=== PATIENT | female | born 1990 | race Caucasian/White ===

== ENCOUNTER 2016-08-24 12:23 | Emergency (ER) | payer OTHER ==
[2016-08-24 12:36] VITALS: BP 124/64; PULSE 85; RESP 20; TEMP 99.2; O2SAT 99
[2016-08-24] MEDS ORDERED: Sodium Chloride 0.9% 1,000 ML IV STA (12:52)
--- NOTE | 2016-08-24 12:54 | ED PDOC ---
Arrival/HPI - General Chief Complaint: Abdominal Pain Time Seen by Provider: 08/24/16 12:26 Historian: Patient - History of Present Illness Narrative History of Present Illness (Text): 08/24/16 12:51 25 year old female presents to the emergency department with suprapubic pain for the past 9 days. LMP 4/. No vomiting, fever, or other complaints. Patient states she took Motrin this morning. Time/Duration: > week Symptom Onset: Gradual Symptom Course: Unchanged Associated Symptoms (Text): None Past Medical History - Provider Review Nursing Documentation Reviewed: Yes - Infectious Disease Hx of Infectious Diseases: None - Gastrointestinal Other/Comment: H-pylori, 2016 - Psychiatric Hx Substance Use: No - Anesthesia Hx Anesthesia: No Hx Anesthesia Reactions: No Hx Malignant Hyperthermia: No Family/Social History - Physician Review Nursing Documentation Reviewed: Yes Family/Social History: Unknown Family HX Smoking Status: Never Smoked Hx Alcohol Use: No Hx Substance Use: No Allergies/Home Meds Allergies/Adverse Reactions: Allergies kiwi Adverse Reaction (Verified 08/24/16 12:37) RASH strawberry Adverse Reaction (Verified 08/24/16 12:37) RASH apples Adverse Reaction (Uncoded 08/24/16 12:37) RASH Home Medications: Home Meds Medication Instructions Recorded Confirmed No Known Home Med 08/24/16 08/24/16 Review of Systems - Physician Review All systems were reviewed & negative as marked: Yes - Review of Systems Constitutional: absent: Fevers Respiratory: absent: SOB Gastrointestinal: Abdominal Pain. absent: Nausea, Vomiting Physical Exam Vital Signs Reviewed: Yes Vital Signs Temp Pulse Resp BP Pulse Ox 08/24/16 12:31 99.2 F 85 20 124/64 99 Temperature: Afebrile Blood Pressure: Normal Pulse: Regular Respiratory Rate: Normal Appearance: Positive for: Well-Appearing, Non-Toxic, Uncomfortable Pain Distress: Mild Mental Status: Positive for: Alert and Oriented X 3 - Systems Exam Head: Present: Atraumatic, Normocephalic Pupils: Present: PERRL Extroacular Muscles: Present: EOMI Conjunctiva: Present: Normal Mouth: Present: Moist Mucous Membranes Neck: Present: Normal Range of Motion Respiratory/Chest: Present: Clear to Auscultation, Good Air Exchange. No: Respiratory Distress, Accessory Muscle Use Cardiovascular: Present: Regular Rate and Rhythm, Normal S1, S2. No: Murmurs Abdomen: Present: Tenderness (Mild suprapubic), Normal Bowel Sounds. No: Distention, Peritoneal Signs Back: Present: Normal Inspection Upper Extremity: Present: Normal Inspection. No: Cyanosis, Edema Lower Extremity: Present: Normal Inspection. No: Edema Neurological: Present: GCS=15, CN II-XII Intact, Speech Normal Skin: Present: Warm, Dry, Normal Color. No: Rashes Psychiatric: Present: Alert, Oriented x 3, Normal Insight, Normal Concentration Medical Decision Making ED Course and Treatment: Impression: 25 year old female presents to the emergency department with suprapubic pain for the past 9 days. Differential Diagnosis include but are not limited to: ectopic vs early pregn vs miscarriage. Plan: -- US -- Labs -- Reassess and disposition Progress Notes: 08/24/16 12:55 Patient states she does not want pain meds in er intially. later requests tylenol to RN. US Transvaginal Lead Housekeeper : Pascual Barnett MD IMPRESSION: 3 millimeter hypoechoic/ cystic focus in the central endometrial canal which could represent a very early intrauterine gestation. No evidence of pole or yolk sac. Ectopic is not excluded. Recommend correlation with serial beta HCG levels and short-term interval followup. Case discussed with Dr. Torres, who advises close outpatient followup. Instructed return precautions. Patient verbalizes understanding 08/24/16 15:10 on reassesement. abd soft mild ttp. no vb. pt instructed about return precatuions for ectopic. advised of possiblility. advised needs outpt f/u. no free fluid - Lab Interpretations Lab Results: 08/24/16 12:56 08/24/16 14:10 Lab Results 08/24/16 14:10: Blood Type A POSITIVE, Antibody Screen Negative, BBK History Checked Patient has bt 08/24/16 14:10: Sodium 137, Potassium 3.9, Chloride 105, Carbon Dioxide 21, Anion Gap 15, BUN 8, Creatinine 0.5, Est GFR ( Amer) > 60, Est GFR (Non- Af Amer) > 60, Random Glucose 104, Calcium 8.6, Total Bilirubin 0.6, AST 26, ALT 34, Alkaline Phosphatase 44, Total Protein 7.3, Albumin 3.9, Globulin 3.4, Albumin/Globulin Ratio 1.1, Lipase 105 08/24/16 13:09: Blood Type Cancelled, Antibody Screen Cancelled, BBK History Checked Cancelled 08/24/16 12:56: Beta HCG, Quant 699.67 H 08/24/16 12:56: Urine Color Yellow, Urine Appearance Sl cloudy, Urine pH 6.0, Ur Specific [place] >= 1.030, Urine Protein Trace H, Urine Glucose (UA) Negative , Urine Ketones Negative, Urine Blood Negative, Urine Nitrate Negative, Urine Bilirubin Negative, Urine Urobilinogen 0.2, Ur Leukocyte Esterase Negative, Urine RBC Negative, Urine WBC 0 - 2, Ur Epithelial Cells 1 - 3, Urine Bacteria Mod, Urine HCG, Qual Positive 08/24/16 12:56: PT 10.8, INR 1.00, APTT 28.5 08/24/16 12:56: WBC 9.8, RBC 4.58, Hgb 11.9 L, Hct 36.2, MCV 79.0 L, MCH 26.0, MCHC 32.9, RDW 13.8, Plt Count 177, MPV 12.9 H, Gran % 79.8 H, Lymph % (Auto) 11.5 L, [place] % (Auto) 8.0 H, Eos % (Auto) 0.6 L, Baso % (Auto) 0.1, Gran # 7.79 H, Lymph # 1.1 L, [place] # 0.8 H, Eos # 0.1, Baso # 0.01 - RAD Interpretation Radiology Orders: 08/24/16 12:51 OB TRANSVAGINAL [US] Stat - Medication Orders Current Medication Orders: Discontinued Medications Acetaminophen (Tylenol 325mg Tab) 975 mg PO STAT STA Stop: 08/24/16 13:09 Last Admin: 08/24/16 13:10 Dose: 975 mg Acetaminophen (Tylenol 325mg Tab) Confirm Administered Dose 975 mg .ROUTE .STK- MED ONE Stop: 08/24/16 13:11 Last Admin: 08/24/16 13:11 Dose: Sodium Chloride (Sodium Chloride 0.9%) 1,000 mls @ 999 mls/hr IV .Q1H1M STA Stop: 08/24/16 13:52 Last Admin: 08/24/16 13:07 Dose: 999 mls/hr - Scribe Statement The provider has reviewed the documentation as recorded by the Karthik Dhaliwal Provider Scribe Attestation: All medical record entries made by the Karthik were at my direction and personally dictated by me. I have reviewed the chart and agree that the record accurately reflects my personal performance of the history, physical exam, medical decision making, and the department course for this patient. I have also personally directed, reviewed, and agree with the discharge instructions and disposition. Disposition/Present on Arrival - Present on Arrival Any Indicators Present on Arrival: No History of DVT/PE: No History of Uncontrolled Diabetes: No Urinary Catheter: No History of Decub. Ulcer: No History Surgical Site Infection Following: None - Disposition Have Diagnosis and Disposition been Completed?: Yes Diagnosis: Threatened Disposition Time: 14:50 Patient Problems: Current Active Problems Problem Status Onset Threatened Acute Condition: STABLE Discharge Instructions (ExitCare): Threatened Miscarriage (ED) Additional Instructions: please follow up with your doctor. return to er with worsening symptoms or concerns. you need to see in obgyn and have repeat labs and US performed in the next 48 hours. Referrals: Kaleb Mccord [Medical Doctor] - Follow up with primary Alexis Torres MD [Staff Provider] - Follow up with primary
[2016-08-24 13:13] LABS: ADD MANUAL DIFF? NO
[2016-08-24 13:17] LABS: URINE BILIRUBIN NEGATIVE (NEGATIVE); URINE BLOOD NEGATIVE (NEGATIVE); URINE GLUCOSE (UA) NEGATIVE (NEGATIVE); URINE KETONE NEGATIVE (NEGATIVE); URINE LEUKOCYTE ESTERASE NEGATIVE Leu/uL (NEGATIVE); URINE PROTEIN TRACE mg/dL (<30 mg/dL); URINE UROBILINOGEN 0.2 E.U./dL (<1 E.U./dL)
[2016-08-24 13:18] LABS: BASO # 0.01 K/mm3 (0.0-2.0); BASO % 0.1 % (0.0-3.0); EOS # 0.1 (0.0-0.7); EOS % 0.6 % (1.5-5.0); GRAN # 7.79 (1.4-6.5); GRAN % 79.8 % (50.0-68.0); HEMATOCRIT 36.2 % (36.0-48.0); LYMPH # 1.1 (1.2-3.4); LYMPH % 11.5 % (22.0-35.0); MEAN CORPUSCULAR HGB CONC 32.9 g/dl (31.0-37.0); MEAN PLATELET VOLUME 12.9 fl (7.0-11.0); MONO # 0.8 (0.1-0.6); PLATELET COUNT 177 10^3/uL (120.0-450.0); RED CELL DISTRIBUTION WIDTH 13.8 % (11.5-14.5); WHITE BLOOD COUNT 9.8 10^3/ul (4.5-11.0)
[2016-08-24 13:21] LABS: URINE APPEARANCE SL CLOUDY (CLEAR); URINE COLOR YELLOW (YELLOW)
[2016-08-24 13:25] LABS: PARTIAL THROMBOPLASTIN TIME 28.5 Seconds (23.7-30.8)
[2016-08-24 13:29] LABS: URINE RBC NEGATIVE /hpf (0-2); URINE WBC 0 - 2 /hpf (0-6)
[2016-08-24 13:30] LABS: URINE BACTERIA MOD (NEG)
--- NOTE | 2016-08-24 14:16 | US ---
PROCEDURE: HISTORY: abd pain and COMPARISON: TECHNIQUE: FINDINGS: The uterus is normal in size. The endometrium is thickened measuring 2 centimeters. There is a 3 millimeter hypoechoic focus within the endometrial canal which could represent a very early intrauterine gestation. There is no evidence of yolk sac or pole. The ovaries are unremarkable. IMPRESSION: 3 millimeter hypoechoic/ cystic focus in the central endometrial canal which could represent a very early intrauterine gestation. No evidence of pole or yolk sac. Ectopic is not excluded. Recommend correlation with serial beta HCG levels and short-term interval followup.
[2016-08-24 14:23] LABS: ALB/GLOB RATIO 1.1 (1.1-1.8); ALKALINE PHOSPHATASE 44 U/L (38-133); ALT/SGPT 34 U/L (7-56); AST/SGOT 26 U/L (15-39); BILIRUBIN,TOTAL 0.6 mg/dL (0.2-1.3); BLOOD UREA NITROGEN 8 mg/dL (7-21); CALCIUM 8.6 mg/dL (8.4-10.5); CARBON DIOXIDE 21 mmol/L (21-33); CHLORIDE 105 mmol/L (98-107); GFR AFRICAN-AMERICAN > 60; GLUCOSE,RANDOM 104 mg/dL (70-110); LIPASE 105 U/L (23-300); POTASSIUM 3.9 mmol/L (3.6-5.0); SODIUM 137 mmol/L (132-148); TOTAL PROTEIN 7.3 g/dL (5.8-8.3)
== END 2016-08-24 15:09 | disposition home or self-care (01) ==
LOC: MERGE 12:23 → ED 12:23
DX: O20.0 Threatened abortion (principal); Z3A.00 Weeks of gestation of pregnancy not specified
CPT/HCPCS: 76817; 80053; 81001; 83690; 84702; 84703; 85025; 85610; 85730; 86850; 86900; 99284; J7040

== ENCOUNTER 2016-10-24 18:51 | Emergency (ER) | payer OTHER ==
[2016-10-24 18:54] VITALS: BMI 25.3
[2016-10-24 18:58] VITALS: RESP 18; TEMP 98.2; O2SAT 99
[2016-10-24] MEDS ORDERED: Sodium Chloride 0.9% 1,000 ML IV STA (19:08)
[2016-10-24 20:06] LABS: BASO # 0.01 K/mm3 (0.0-2.0); BASO % 0.2 % (0.0-3.0); EOS # 0.1 (0.0-0.7); GRAN # 1.84 (1.4-6.5); GRAN % 45.4 % (50.0-68.0); HEMOGLOBIN 10.8 gm/dL (12.0-16.0); LYMPH # 1.9 (1.2-3.4); LYMPH % 45.7 % (22.0-35.0); MEAN CORPUSCULAR HEMOGLOBIN 25.1 pg (25.0-35.0); MEAN CORPUSCULAR HGB CONC 32.5 g/dl (31.0-37.0); MONO # 0.3 (0.1-0.6); MONO % 6.7 % (1.0-6.0); RBC 4.31 10^6/uL (3.5-6.1); RED CELL DISTRIBUTION WIDTH 14.2 % (11.5-14.5); WHITE BLOOD COUNT 4.1 10^3/ul (4.5-11.0)
[2016-10-24 20:13] LABS: INR 1.01 (0.93-1.08); PARTIAL THROMBOPLASTIN TIME 28.1 Seconds (23.7-30.8); PROTHROMBIN TIME 10.9 Seconds (9.9-11.8)
[2016-10-24 20:15] LABS: ALB/GLOB RATIO 1.3 (1.1-1.8); ALBUMIN 3.9 g/dL (3.0-4.8); ALT/SGPT 41 U/L (7-56); AST/SGOT 33 U/L (15-39); BLOOD UREA NITROGEN 3 mg/dL (7-21); CALCIUM 9.1 mg/dL (8.4-10.5); GFR AFRICAN-AMERICAN > 60; GFR NON-AFRICAN AMERICAN > 60; LIPASE 59 U/L (23-300)
[2016-10-24 20:29] LABS: URINE BILIRUBIN NEGATIVE (NEGATIVE); URINE BLOOD LARGE (NEGATIVE); URINE GLUCOSE (UA) NEGATIVE (NEGATIVE); URINE LEUKOCYTE ESTERASE NEGATIVE Leu/uL (NEGATIVE); URINE NITRATE NEGATIVE (NEGATIVE); URINE PROTEIN NEGATIVE mg/dL (<30 mg/dL); URINE UROBILINOGEN 0.2 E.U./dL (<1 E.U./dL)
[2016-10-24 20:36] LABS: URINE APPEARANCE SL CLOUDY (CLEAR); URINE COLOR LIGHT YELLOW (YELLOW)
--- NOTE | 2016-10-24 20:48 | US ---
EXAM: US After First Trimester, Transabdominal CLINICAL HISTORY: 25 years old, female; Pain; complicated by abdominal or pelvic pain; Lower; Second trimester; Gestational age or lmp: 15 weeks iday; ; Additional info: Vaginal bleeding, spotting, pain TECHNIQUE: Real-time transabdominal obstetrical ultrasound of the maternal pelvis and a second or third trimester with image documentation. EXAM DATE/TIME: 10/24/2016 7:09 PM COMPARISON: Prior obstetric ultrasound of 08/24/2016 FINDINGS: A limited exam only was performed, on an emergency basis, in the ED. Single fetus identified, variable position. Calculated sonographic gestational age is 15 weeks, 2 days. Estimated delivery date is 04/15/2017. heart motion visualized, at 161 beats/min. The anatomy was not assessed on this exam. Fundal and left location of the placenta. No evidence of placental abruption. Cervix is not well seen on this exam. Ovaries could not be visualized. IMPRESSION: 15 week, 2 day intrauterine with heart motion. No acute abnormality identified on this limited exam. See above for remaining findings.
[2016-10-24 20:50] LABS: URINE BACTERIA FEW (NEG); URINE EPITHELIAL CELLS 0 - 2 /hpf (0-5); URINE WBC 0 - 2 /hpf (0-6)
[2016-10-24 21:23] VITALS: BP 100/70; PULSE 80
[2016-10-24 22:14] LABS: PLATELET COUNT 159 10^3/uL (120.0-450.0)
--- NOTE | 2016-10-24 22:29 | ED PDOC ---
Arrival/HPI - General Chief Complaint: Female Genitourinary Time Seen by Provider: 10/24/16 19:06 Historian: Patient - History of Present Illness Narrative History of Present Illness (Text): 10/24/16 19:06 Jacoby Scott is a 25 year old female, and 14 weeks , who presents to the emergency department complaining of vaginal spotting for one day. Patient states that she noticed a couple drops of dry blood when she used the bathroom. Patient also notes that she has been experiencing lower abdomen pressure for 4-5 days. Patient denies any shortness of breath, chest pain, nausea, vomiting, diarrhea, or any other complaint at this time. PMD: Dr. Johnson Time/Duration: 24 hours Symptom Onset: Gradual Symptom Course: Unchanged Severity Level: Mild Activities at Onset: Light Context: Home Past Medical History - Provider Review Nursing Documentation Reviewed: Yes - Infectious Disease Hx of Infectious Diseases: None - Pulmonary Hx Asthma: Yes - HEENT Hx HEENT Disorder: Yes Other/Comment: WAX BUILDUP RIGHT EAR; AWAITING TO SEE MD TO REMOVE. - Hematological/Oncological Hx Blood Transfusions: No - Gastrointestinal Hx Gastrointestinal Disorders: No - Psychiatric Hx Anxiety: Yes Hx Substance Use: No - Anesthesia Hx Anesthesia: No Hx Anesthesia Reactions: No Hx Malignant Hyperthermia: No Family/Social History - Physician Review Nursing Documentation Reviewed: Yes Family/Social History: No Known Family HX Smoking Status: Never Smoked Hx Alcohol Use: No Hx Substance Use: No Allergies/Home Meds Allergies/Adverse Reactions: Allergies apple Allergy (Mild, Verified 10/31/15 09:39) RASH kiwi Allergy (Mild, Verified 10/31/15 09:39) RASH strawberry Allergy (Mild, Verified 10/31/15 09:39) RASH apples Adverse Reaction (Uncoded 08/24/16 12:37) RASH Home Medications: Home Meds Medication Instructions Recorded Confirmed No Known Home Med 08/24/16 10/24/16 Review of Systems - Physician Review All systems were reviewed & negative as marked: Yes - Review of Systems Constitutional: absent: Fevers, Night Sweats Eyes: absent: Vision Changes ENT: absent: Hearing Changes Respiratory: absent: SOB, Cough Cardiovascular: absent: Chest Pain Gastrointestinal: Other (Abdominal Pressure) Genitourinary Female: Vaginal Bleeding (Vaginal spotting), Other Musculoskeletal: absent: Arthralgias Skin: absent: Rash Neurological: absent: Headache, Dizziness Endocrine: absent: Diaphoresis Hemo/Lymphatic: absent: Adenopathy Psychiatric: absent: Depression Physical Exam Vital Signs Reviewed: Yes Vital Signs Temp Pulse Resp BP Pulse Ox 10/24/16 21:22 80 100/70 99 10/24/16 18:57 98.2 F 74 18 117/72 99 Temperature: Afebrile Blood Pressure: Normal Pulse: Regular Respiratory Rate: Normal Appearance: Positive for: Well-Appearing, Non-Toxic, Comfortable Pain Distress: None Mental Status: Positive for: Alert and Oriented X 3 - Systems Exam Head: Present: Atraumatic, Normocephalic Pupils: Present: PERRL Extroacular Muscles: Present: EOMI Conjunctiva: Present: Normal Mouth: Present: Moist Mucous Membranes Neck: Present: Normal Range of Motion Respiratory/Chest: Present: Clear to Auscultation, Good Air Exchange. No: Respiratory Distress, Accessory Muscle Use Cardiovascular: Present: Regular Rate and Rhythm, Normal S1, S2. No: Murmurs Abdomen: Present: Normal Bowel Sounds, Other (Deferred pelvic exam). No: Tenderness, Distention, Peritoneal Signs Back: Present: Normal Inspection Upper Extremity: Present: Normal Inspection. No: Cyanosis, Edema Lower Extremity: Present: Normal Inspection. No: Edema Neurological: Present: GCS=15, CN II-XII Intact, Speech Normal Skin: Present: Warm, Dry, Normal Color. No: Rashes Psychiatric: Present: Alert, Oriented x 3, Normal Insight, Normal Concentration Medical Decision Making ED Course and Treatment: 10/24/16 19:30 Impression: 25 year old female complaining of vaginal spotting for 1 day and lower abdominal pressure for 4-5 days. Plan: -- Abdominal Ultrasound -- Labs -- IV Fluids -- Reassess and disposition Prior Visits: Notes and results from previous visits were reviewed. Patient last seen in ED on 08/26/16 for pelvic pain for 10 days. Patient was discharged home. Progress Notes: 10/24/16 20:48 US After First Trimester, Transabdominal: Dictated and Authenticated by: Leonarda Abbasi MD FINDINGS: A limited exam only was performed, on an emergency basis, in the ED. Single fetus identified, variable position. Calculated sonographic gestational age is 15 weeks, 2 days. Estimated delivery date is 04/15/2017. heart motion visualized, at 161 beats/min. The anatomy was not assessed on this exam. Fundal and left location of the placenta. No evidence of placental abruption. Cervix is not well seen on this exam. Ovaries could not be visualized. IMPRESSION: 15 week, 2 day intrauterine with heart motion. No acute abnormality identified on this limited exam. 10/24/16 20:30 Reevaluation: On reevaluation the patient feels better and is in no acute distress. I have discussed the results and plan with the patient, who expresses understanding. Patient given the opportunity to ask question, all questions were answered and there is agreement with the plan to discharge the patient home. Patient is stable for discharge. Patient was instructed to follow up with OB or physician/ clinic in 1-2 days or return if symptoms persist/worsen or new concerning symptoms arise. - Lab Interpretations Lab Results: 10/24/16 19:20 10/24/16 19:20 Lab Results 10/24/16 19:20: Blood Type A POSITIVE, Antibody Screen Negative, BBK History Checked Patient has bt 10/24/16 19:20: PT 10.9, INR 1.01, APTT 28.1 10/24/16 19:20: Beta HCG, Quant 52119.00 H 10/24/16 19:20: Sodium 132, Potassium 3.5 L, Chloride 104, Carbon Dioxide 20 L, Anion Gap 12, BUN 3 L, Creatinine 0.4 L, Est GFR ( Amer) > 60, Est GFR ( Non-Af Amer) > 60, Random Glucose 78, Calcium 9.1, Total Bilirubin 0.4, AST 33, ALT 41, Alkaline Phosphatase 41, Total Protein 7.0, Albumin 3.9, Globulin 3.1, Albumin/Globulin Ratio 1.3, Lipase 59 10/24/16 19:20: Urine Color Light yellow, Urine Appearance Sl cloudy, Urine pH 6.0, Ur Specific [place] <= 1.005, Urine Protein Negative, Urine Glucose (UA) Negative, Urine Ketones Trace H, Urine Blood Large H, Urine Nitrate Negative, Urine Bilirubin Negative, Urine Urobilinogen 0.2, Ur Leukocyte Esterase Negative , Urine RBC 1 - 3, Urine WBC 0 - 2, Ur Epithelial Cells 0 - 2, Urine Bacteria Few 10/24/16 19:20: WBC 4.1 L D, RBC 4.31, Hgb 10.8 L, Hct 33.2 L, MCV 77.0 L, MCH 25.1, MCHC 32.5, RDW 14.2, Plt Count 159, Gran % 45.4 L, Lymph % (Auto) 45.7 H, [place] % (Auto) 6.7 H, Eos % (Auto) 2.0, Baso % (Auto) 0.2, Gran # 1.84, Lymph # 1.9, [place] # 0.3, Eos # 0.1, Baso # 0.01 I have reviewed the lab results: Yes - RAD Interpretation Radiology Orders: 10/24/16 19:09 AGE [US] Stat - Medication Orders Current Medication Orders: Discontinued Medications Sodium Chloride (Sodium Chloride 0.9%) 1,000 mls @ 1,000 mls/hr IV .Q1H STA Stop: 10/24/16 20:07 Last Admin: 10/24/16 19:24 Dose: 1,000 mls/hr - Scribe Statement The provider has reviewed the documentation as recorded by the Karthik Padilla Provider Scribe Attestation: All medical record entries made by the Y[place]io were at my direction and personally dictated by me. I have reviewed the chart and agree that the record accurately reflects my personal performance of the history, physical exam, medical decision making, and the department course for this patient. I have also personally directed, reviewed, and agree with the discharge instructions and disposition. Disposition/Present on Arrival - Present on Arrival Any Indicators Present on Arrival: No History of DVT/PE: No History of Uncontrolled Diabetes: No Urinary Catheter: No History of Decub. Ulcer: No History Surgical Site Infection Following: None - Disposition Have Diagnosis and Disposition been Completed?: Yes Diagnosis: Threatened Disposition: HOME/ ROUTINE Disposition Time: 20:50 Condition: GOOD Discharge Instructions (ExitCare): Threatened Miscarriage (ED) Additional Instructions: Thank you for letting us take care of you today. Your provider was Dr. Jacobs. You were treated for vaginal bleeding during . The emergency medical care you received today was directed at your acute symptoms. If you were prescribed any medication, please fill it and take as directed. It may take several days for your symptoms to resolve. Return to the Emergency Department if your symptoms worsen, do not improve, or if you have any other problems. Please contact your doctor or call one of the physicians/clinics you have been referred to that are listed on the Patient Visit Information form that is included in your discharge packet. Bring any paperwork you were given at discharge with you along with any medications you are taking to your follow up visit. Our treatment cannot replace ongoing medical care by a primary care provider (PCP) outside of the emergency department. Thank you for allowing the [facility] team to be part of your care today. Follow up with your [facility] doctor in 2-3 days. Return to the emergency room if you have any concerns. Referrals: Katie Johnson MD [Primary Care Provider] - Follow up with primary
== END 2016-10-24 21:22 | disposition home or self-care (01) ==
LOC: ED 18:51
DX: O20.0 Threatened abortion (principal); Z3A.15 15 weeks gestation of pregnancy
CPT/HCPCS: 76815; 80053; 81001; 83690; 84702; 85025; 85610; 85730; 86850; 86900; 99283; J7040

== ENCOUNTER 2016-11-23 13:32 | Emergency (ER) | payer OTHER ==
[2016-11-23 13:33] VITALS: BMI 25.3
[2016-11-23 13:51] VITALS: TEMP 98.5; O2SAT 99
--- NOTE | 2016-11-23 14:31 | ED PDOC ---
Arrival/HPI - General Chief Complaint: Abdominal Pain Time Seen by Provider: 11/23/16 13:58 Historian: Patient - History of Present Illness Narrative History of Present Illness (Text): 11/23/16 14:11 A 25 year old female patient, who is 19 weeks , with no significant past medical history is presenting to the emergency department after accidentally hitting her pelvis with a chair yesterday. The patient notes that she was lifting a chair and accidentally banged it on to her pelvis. She notes additionally, that she has been experiencing hematuria for the last two weeks. Along with the hematuria she has felt terrible intermittent flank pain, predominantly on her right side. The patient reports last movement was 3 days ago (first day of movement). The patients admits to having nausea and vomiting from and abdominal pain from chair accident. She denies any dizziness, vision changes, chest pain, vaginal bleeding, or any other symptoms at this time. She has received 2 courses of antibiotics for a UTI, and despite seeing occasional blood in the urine over the past several weeks, was told by her obgyn that she has no UTI. LMP: 07/20/16 OBGYNO: Dr. Johnson Time/Duration: 24 hours (Hit with chair), > week (2 weeks hematuria) Activities at Onset: Rest, Light Context: Home Past Medical History - Provider Review Nursing Documentation Reviewed: Yes - Infectious Disease Hx of Infectious Diseases: None - Pulmonary Hx Asthma: Yes - HEENT Hx HEENT Disorder: Yes Other/Comment: WAX BUILDUP RIGHT EAR; AWAITING TO SEE MD TO REMOVE. - Hematological/Oncological Hx Blood Transfusions: No - Gastrointestinal Hx Gastrointestinal Disorders: No - Psychiatric Hx Anxiety: Yes Hx Substance Use: No - Anesthesia Hx Anesthesia: No Hx Anesthesia Reactions: No Hx Malignant Hyperthermia: No Family/Social History - Physician Review Nursing Documentation Reviewed: Yes Family/Social History: No Known Family HX, Unknown Family HX Smoking Status: Never Smoked Hx Alcohol Use: No Hx Substance Use: No Allergies/Home Meds Allergies/Adverse Reactions: Allergies apple Allergy (Mild, Verified 10/31/15 09:39) RASH kiwi Allergy (Mild, Verified 10/31/15 09:39) RASH strawberry Allergy (Mild, Verified 10/31/15 09:39) RASH apples Adverse Reaction (Uncoded 08/24/16 12:37) RASH Home Medications: Home Meds Medication Instructions Recorded Confirmed Doxylamine/Pyridoxine HCl (B6) 2 tab PO HS 11/23/16 11/23/16 [Gustabo Leone 10-10 mg Tablet] Vit Calc,Iron,Folic 1 each PO DAILY 11/23/16 11/23/16 [ Vitamins] Review of Systems - Physician Review All systems were reviewed & negative as marked: Yes - Review of Systems Eyes: absent: Vision Changes Cardiovascular: absent: Chest Pain Gastrointestinal: Abdominal Pain, Nausea (From ), Vomiting (from ) Genitourinary Female: Hematuria (2 weeks ). absent: Vaginal Bleeding Neurological: absent: Dizziness Endocrine: Other (Kidney pain ) Physical Exam Vital Signs Temp Pulse Resp BP Pulse Ox 11/23/16 13:50 98.5 F 84 16 107/71 99 Temperature: Afebrile Blood Pressure: Normal Pulse: Regular Respiratory Rate: Normal Appearance: Positive for: Well-Appearing, Non-Toxic, Comfortable Pain Distress: None Mental Status: Positive for: Alert and Oriented X 3 - Systems Exam Head: Present: Atraumatic, Normocephalic Pupils: Present: PERRL Conjunctiva: Present: Normal Mouth: Present: Moist Mucous Membranes Pharnyx: Present: Normal. No: ERYTHEMA, EXUDATE Neck: Present: Normal Range of Motion Respiratory/Chest: Present: Clear to Auscultation, Good Air Exchange. No: Respiratory Distress, Accessory Muscle Use Cardiovascular: Present: Regular Rate and Rhythm, Normal S1, S2. No: Murmurs Abdomen: Present: Tenderness (Mild lower abdominal tenderness ), Other (Gravid) . No: Distention, Normal Bowel Sounds Genitourinary/Pelvic Exam: Present: Normal External Genitalia, Cervical os Closed, Other (pelvic exam chaperoned by cornel Mead). No: Vaginal Discharge, Vaginal Bleeding, Adenexal Tenderness, Cervical Motion Tendernes, Odor Back: Present: CVA Tenderness (on right) Upper Extremity: Present: Normal Inspection. No: Cyanosis, Edema Lower Extremity: Present: Normal Inspection. No: Edema Neurological: Present: GCS=15, CN II-XII Intact, Speech Normal Skin: Present: Warm, Dry, Normal Color. No: Rashes Psychiatric: Present: Alert, Oriented x 3, Normal Insight, Normal Concentration Medical Decision Making ED Course and Treatment: 11/23/16 14:43 Impression: A 25 year old female with hematuria and abdominal pain. Differential Diagnosis included but are not limited to: UTI vs trauma Plan: -- test -- Urinalysis -- Age Ultrasound -- Renal Ultrasound -- Reassess and disposition Prior Visits: Notes and results from previous visits were reviewed. Patient was last seen on 11/03/16 for vaginal bleeding. The patient was discharged same day. Progress Notes: Manual Vaginal Exam: No blood. No CMT. 11/23/16 16:11 Pelvic exam is unremarkable as is sono, showing FH with movement and IUP; renal sono is normal - ok for d/c to f/u her OBGYN. - Lab Interpretations Lab Results: Lab Results 11/23/16 14:40: Urine Color Yellow, Urine Appearance Cloudy, Urine pH 8.0, Ur Specific [place] 1.020, Urine Protein Negative, Urine Glucose (UA) Negative, Urine Ketones Negative, Urine Blood Negative, Urine Nitrate Negative, Urine Bilirubin Negative, Urine Urobilinogen 1.0 H, Ur Leukocyte Esterase Trace H, Urine RBC 0 - 2, Urine WBC 0 - 2, Ur Epithelial Cells Many, Amorphous Sediment Many, Urine Bacteria Small, Coarse Granular Casts Trace H - RAD Interpretation Radiology Orders: 11/23/16 14:19 AGE [US] Stat RENAL [US] Stat - Scribe Statement The provider has reviewed the documentation as recorded by the Scribtonio Mead Provider Scribe Attestation: All medical record entries made by the Scribe were at my direction and personally dictated by me. I have reviewed the chart and agree that the record accurately reflects my personal performance of the history, physical exam, medical decision making, and the department course for this patient. I have also personally directed, reviewed, and agree with the discharge instructions and disposition. Disposition/Present on Arrival - Present on Arrival Any Indicators Present on Arrival: No History of DVT/PE: No History of Uncontrolled Diabetes: No Urinary Catheter: No History of Decub. Ulcer: No History Surgical Site Infection Following: None - Disposition Have Diagnosis and Disposition been Completed?: Yes Diagnosis: Abdominal pain during Disposition: HOME/ ROUTINE Disposition Time: 16:10 Patient Plan: Discharge Condition: GOOD Additional Instructions: Tylenol as needed for pain. Drink plenty of fluids. Follow up with your OBGYN. Return to the emergency department if any new concerning symptoms. Referrals: Katie Johnson MD [Non-Staff] - Follow up with primary Forms: [employer] ([place])
[2016-11-23 14:55] LABS: URINE BILIRUBIN NEGATIVE (NEGATIVE); URINE BLOOD NEGATIVE (NEGATIVE); URINE GLUCOSE (UA) NEGATIVE (NEGATIVE); URINE LEUKOCYTE ESTERASE TRACE Leu/uL (NEGATIVE); URINE NITRATE NEGATIVE (NEGATIVE); URINE PROTEIN NEGATIVE mg/dL (<30 mg/dL)
[2016-11-23 15:00] LABS: URINE APPEARANCE CLOUDY (CLEAR); URINE COLOR YELLOW (YELLOW)
[2016-11-23 15:04] LABS: URINE AMORPHOUS SEDIMENT MANY; URINE BACTERIA SMALL (NEG); URINE COARSE GRANULAR CAST TRACE /hpf (0-2); URINE EPITHELIAL CELLS MANY /hpf (0-5); URINE RBC 0 - 2 /hpf (0-2); URINE WBC 0 - 2 /hpf (0-6)
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
[2016-11-23 16:19] VITALS: BP 122/78; PULSE 78; RESP 18
== END 2016-11-23 16:20 | disposition home or self-care (01) ==
LOC: ED 13:32
DX: O26.892 Other specified pregnancy related conditions, second trimester (principal); Z3A.19 19 weeks gestation of pregnancy; R10.9 Unspecified abdominal pain